=== PATIENT | female | born 1950 | race Caucasian/White ===

== ENCOUNTER → 2018-07-02 | Outpatient (CLI) | payer OTHER ==
[~2018-07-02] MED LIST: ASPI-611 PO; ZOL50T PO
[2018-07-02 08:41] LABS: BASOPHILS # (AUTO) 0.1 X10'3 (0-0.2); BASOPHILS % (AUTO) 1.1 % (0-1); EOSINOPHILS # (AUTO) 0.1 X10'3 (0-0.9); EOSINOPHILS % (AUTO) 1.9 % (0-6); HEMATOCRIT 47.2 % (35.0-45.0); HEMOGLOBIN 15.3 g/dl (12.0-16.0); LYMPHOCYTES # (AUTO) 1.9 X10'3 (1.1-4.8); LYMPHOCYTES % (AUTO) 37.8 % (21-51); MEAN CORPUSCULAR HEMOGLOBIN 31.1 PG (27.0-31.0); MEAN CORPUSCULAR HGB CONC 32.5 % (33.0-36.5); MEAN CORPUSCULAR VOLUME 95.8 FL (78-98); MEAN PLATELET VOLUME 8.4 FL (7.4-10.4); MONOCYTES # (AUTO) 0.4 X10'3 (0-0.9); MONOCYTES % (AUTO) 7.2 % (2-12); NEUTROPHILS # (AUTO) 2.4 X10'3 (1.8-7.7); PLATELET COUNT 233 X10'3 (140-440); RED BLOOD COUNT 4.92 X10'6 (4.20-5.60); RED CELL DISTRIBUTION WIDTH 12.5 % (11.5-14.5); WHITE BLOOD COUNT 4.9 X10'3 (4.5-11.0)
[2018-07-02 09:03] LABS: ALANINE AMINOTRANSFERASE 49 U/L (12-78); ALBUMIN 4.2 G/DL (3.4-5.0); ALBUMIN/GLOBULIN RATIO 1.3 (1.1-1.5); ALKALINE PHOSPHATASE 94 IU/L (46-116); ANION GAP 10 (8-16); ASPARTATE AMINO TRANSFERASE 42 U/L (10-37); BILIRUBIN,TOTAL 0.4 MG/DL (0.1-1.0); BLOOD UREA NITROGEN 9 MG/DL (7-18); BUN/CREATININE RATIO 9.8 (6.6-38.0); CALCIUM 9.6 MG/DL (8.5-10.1); CHLORIDE 104 MMOL/L (99-107); CHOLESTEROL 256 MG/DL (0-200); CREATININE 0.92 MG/DL (0.40-0.90); GLUCOSE 109 MG/DL (70-104); HDL CHOLESTEROL 32 MG/DL (35-60); LDL CHOLESTEROL 178 MG/DL (50-100); POTASSIUM 4.3 MMOL/L (3.5-5.1); SODIUM 142 MMOL/L (135-145); TOTAL CARBON DIOXIDE 28.1 MMOL/L (24-32); TOTAL PROTEIN 7.4 G/DL (6.4-8.2); TRIGLYCERIDES 232 MG/DL (20-135); eGFR 61 ML/MIN
== END | disposition home or self-care (01) ==
LOC: LAB 06:58
PROVIDERS: ATTEND Physician Assistant
DX: Z00.00 Encounter for general adult medical examination without abnormal findings (principal); E55.9 Vitamin D deficiency, unspecified; Z90.710 Acquired absence of both cervix and uterus; Z79.82 Long term (current) use of aspirin
CPT/HCPCS: 36415; 80053; 80061; 82306; 84443; 85025

== ENCOUNTER 2019-02-13 08:12 | Outpatient (CLI) | payer OTHER, MEDICARE ==
[~2019-02-13 08:12] MED LIST changes: +SERT-153 PO; -ZOL50T PO
[2019-02-13 09:03] LABS: BASOPHILS # (AUTO) 0.1 X10'3 (0-0.2); BASOPHILS % (AUTO) 1.4 % (0-1); EOSINOPHILS # (AUTO) 0.1 X10'3 (0-0.9); EOSINOPHILS % (AUTO) 1.8 % (0-6); HEMATOCRIT 43.6 % (35.0-45.0); HEMOGLOBIN 14.7 g/dl (12.0-16.0); LYMPHOCYTES % (AUTO) 38.7 % (21-51); MEAN CORPUSCULAR HGB CONC 33.7 g/dL (33.0-36.5); MEAN CORPUSCULAR VOLUME 95.1 FL (78-98); MEAN PLATELET VOLUME 8.3 FL (7.4-10.4); MONOCYTES # (AUTO) 0.4 X10'3 (0-0.9); MONOCYTES % (AUTO) 7.7 % (2-12); NEUTROPHILS # (AUTO) 2.6 X10'3 (1.8-7.7); NEUTROPHILS % (AUTO) 50.4 % (42-75); PLATELET COUNT 210 X10'3 (140-440); RED BLOOD COUNT 4.58 X10'6 (4.20-5.60); RED CELL DISTRIBUTION WIDTH 13.2 % (11.5-14.5); WHITE BLOOD COUNT 5.2 X10'3 (4.5-11.0)
[2019-02-13 09:35] LABS: ALANINE AMINOTRANSFERASE 44 U/L (12-78); ALBUMIN/GLOBULIN RATIO 1.4 (1.1-1.5); ALKALINE PHOSPHATASE 76 IU/L (46-116); ANION GAP 9 (8-16); ASPARTATE AMINO TRANSFERASE 29 U/L (10-37); BILIRUBIN,TOTAL 0.4 MG/DL (0.1-1.0); BLOOD UREA NITROGEN 12 MG/DL (7-18); BUN/CREATININE RATIO 14.5 (6.6-38.0); CALCIUM 9.3 MG/DL (8.5-10.1); CHLORIDE 109 MMOL/L (99-107); CHOL/HDL RATIO 6.5 (0.00-4.99); CHOLESTEROL 221 MG/DL (0-200); CREATININE 0.83 MG/DL (0.40-0.90); GLUCOSE 104 MG/DL (70-104); HDL CHOLESTEROL 34 MG/DL (35-60); LDL CHOLESTEROL 161 MG/DL (50-100); POTASSIUM 4.3 MMOL/L (3.5-5.1); SODIUM 143 MMOL/L (135-145); TOTAL CARBON DIOXIDE 25.1 MMOL/L (24-32); TOTAL PROTEIN 6.9 G/DL (6.4-8.2); TRIGLYCERIDES 133 MG/DL (20-135); eGFR 69 ML/MIN
== END 2019-02-13 23:59 | disposition home or self-care (01) ==
LOC: LAB 08:12
PROVIDERS: ATTEND Physician Assistant
DX: G47.00 Insomnia, unspecified (principal); F32.2 Major depressive disorder, single episode, severe without psychotic features; F41.1 Generalized anxiety disorder; R53.83 Other fatigue; Z79.899 Other long term (current) drug therapy
CPT/HCPCS: 36415; 80053; 80061; 84439; 84443; 84481; 85025

== ENCOUNTER 2019-06-01 12:42 | Emergency (ER) | payer OTHER, MEDICARE ==
[~2019-06-01] VITALS: Ht 175.3 cm; Wt 75.5 kg
[2019-06-01 13:06] VITALS: BP 127/72
--- NOTE | 2019-06-01 13:46 | NUR ---
PT STATES SHE CANT URINATE AT THIS TIME
[2019-06-01 14:09] LABS: CLARITY,URINE CLOUDY (Clear); COLOR,URINE YELLOW (Yellow); GLUCOSE, URINE NEGATIVE (Neg); KETONES,URINE NEGATIVE (Neg); LEUKOCYTE ESTERASE ,URINE SMALL (Neg); NITRITES, URINE NEGATIVE (Neg); OCCULT BLOOD,URINE LARGE (Neg); PROTEIN,URINE 30 mg/dl (Neg); UA COLLECTION TYPE CLN CATCH MIDSTREAM; UROBILINOGEN,URINE 0.2 E.U/dL (0.2-1.0)
[2019-06-01 14:21] LABS: BACTERIA,URINE 1+ /HPF (Neg); MUCUS STRANDS NONE SEEN /LPF (Neg); RBC,URINE TNTC /HPF (0-2); RENAL CELLS, URINE FEW /HPF; SQUAMOUS EPITHELIAL CELL,UR FEW /LPF (FEW); WBC CLUMPS,URINE FEW /HPF (NEGATIVE); WBC,URINE 30-50 /HPF (0-4)
[2019-06-01] MEDS ORDERED: cephalexin 250mg capsule PO ONE (14:55)
[2019-06-01] MEDS ORDERED: CEPH250T PO (14:57)
== END 2019-06-01 15:18 | disposition home or self-care (01) ==
LOC: ER 12:42
DX: N39.0 Urinary tract infection, site not specified (principal); E78.00 Pure hypercholesterolemia, unspecified; M19.90 Unspecified osteoarthritis, unspecified site; R31.9 Hematuria, unspecified; Z90.49 Acquired absence of other specified parts of digestive tract; Z90.710 Acquired absence of both cervix and uterus; Z86.718 Personal history of other venous thrombosis and embolism; Z88.0 Allergy status to penicillin; Z79.82 Long term (current) use of aspirin; Z79.2 Long term (current) use of antibiotics
CPT/HCPCS: 81001; 87088; 99283

== ENCOUNTER 2019-06-06 07:41 | Emergency (ER) | payer OTHER, MEDICARE ==
[~2019-06-06] VITALS: Ht 175.3 cm; Wt 82.5 kg
[~2019-06-06 07:41] MED LIST changes: +CEPH250T PO
[2019-06-06 08:36] LABS: BASOPHILS # (AUTO) 0.1 X10'3 (0-0.2); BASOPHILS % (AUTO) 1.1 % (0-1); EOSINOPHILS # (AUTO) 0.1 X10'3 (0-0.9); EOSINOPHILS % (AUTO) 1.6 % (0-6); HEMATOCRIT 43.6 % (35.0-45.0); HEMOGLOBIN 14.7 g/dl (12.0-16.0); LYMPHOCYTES # (AUTO) 1.3 X10'3 (1.1-4.8); LYMPHOCYTES % (AUTO) 25.7 % (21-51); MEAN CORPUSCULAR HEMOGLOBIN 33.1 PG (27.0-31.0); MEAN CORPUSCULAR HGB CONC 33.7 g/dL (33.0-36.5); MEAN CORPUSCULAR VOLUME 98.1 FL (78-98); MEAN PLATELET VOLUME 9.2 FL (7.4-10.4); MONOCYTES # (AUTO) 0.5 X10'3 (0-0.9); MONOCYTES % (AUTO) 10.4 % (2-12); NEUTROPHILS # (AUTO) 3.2 X10'3 (1.8-7.7); NEUTROPHILS % (AUTO) 61.2 % (42-75); PLATELET COUNT 175 X10'3 (140-440); RED BLOOD COUNT 4.44 X10'6 (4.20-5.60); RED CELL DISTRIBUTION WIDTH 13.6 % (11.5-14.5); WHITE BLOOD COUNT 5.2 X10'3 (4.5-11.0)
[2019-06-06] MEDS ORDERED: normal saline 1000ML IV soln IVB ONE (08:45)
[2019-06-06 08:54] LABS: ALANINE AMINOTRANSFERASE 28 U/L (12-78); ALBUMIN 3.8 G/DL (3.4-5.0); ALBUMIN/GLOBULIN RATIO 1.4 (1.1-1.5); ALKALINE PHOSPHATASE 77 IU/L (46-116); ANION GAP 6 (8-16); ASPARTATE AMINO TRANSFERASE 29 U/L (10-37); BILIRUBIN,TOTAL 0.4 MG/DL (0.1-1.0); BLOOD UREA NITROGEN 11 MG/DL (7-18); BUN/CREATININE RATIO 13.6 (6.6-38.0); CALCIUM 9.1 MG/DL (8.5-10.1); CHLORIDE 108 MMOL/L (99-107); CREATININE 0.81 MG/DL (0.40-0.90); GLUCOSE 118 MG/DL (70-104); SODIUM 143 MMOL/L (135-145); TOTAL CARBON DIOXIDE 29.4 MMOL/L (24-32); TOTAL PROTEIN 6.6 G/DL (6.4-8.2); eGFR 71 ML/MIN
[2019-06-06 09:00] LABS: POTASSIUM 4.2 MMOL/L (3.5-5.1)
--- NOTE | 2019-06-06 09:30 | NUR ---
PT TO CT VIA WHEELCHAIR WITH MANAGER SPORTS PER ORDERS NOW
[2019-06-06 10:47] LABS: CLARITY,URINE SLIGHTLY CLOUDY (Clear); COLOR,URINE YELLOW (Yellow); GLUCOSE, URINE NEGATIVE (Neg); KETONES,URINE NEGATIVE (Neg); LEUKOCYTE ESTERASE ,URINE SMALL (Neg); NITRITES, URINE NEGATIVE (Neg); OCCULT BLOOD,URINE NEGATIVE (Neg); PH,URINE 6.5 (4.8-8.0); PROTEIN,URINE NEGATIVE (Neg); UA COLLECTION TYPE CLN CATCH MIDSTREAM
[2019-06-06] MEDS ORDERED: PHEN-824 PO (11:03)
--- NOTE | 2019-06-06 11:09 | NUR ---
in to assist PA Crum with vag exam.
[2019-06-06 11:12] LABS: SQUAMOUS EPITHELIAL CELL,UR MODERATE /LPF (FEW)
[2019-06-06 11:14] LABS: BACTERIA,URINE FEW /HPF (Neg)
[2019-06-06 11:15] LABS: TRANSITIONAL EPI CELLS,URINE FEW /HPF
[2019-06-06] MEDS ORDERED: azithromycin 250mg tablet PO ONE (11:15)
[2019-06-06] MEDS ORDERED: CefTRIAXone 250MG IM Kit w/LIDOcaine IM ONE (11:15)
[2019-06-06 11:19] LABS: MUCUS STRANDS MODERATE /LPF (Neg)
[2019-06-06] MEDS ORDERED: ACYC5CRE2 TOP (11:19)
[2019-06-06 11:51] VITALS: BP 150/80
== END 2019-06-06 11:57 | disposition home or self-care (01) ==
LOC: ER 07:41
DX: R31.9 Hematuria, unspecified (principal); N76.0 Acute vaginitis; E78.00 Pure hypercholesterolemia, unspecified; M19.90 Unspecified osteoarthritis, unspecified site; Z90.49 Acquired absence of other specified parts of digestive tract; Z90.710 Acquired absence of both cervix and uterus; Z86.718 Personal history of other venous thrombosis and embolism; Z98.890 Other specified postprocedural states; Z88.0 Allergy status to penicillin; Z79.82 Long term (current) use of aspirin; Z79.899 Other long term (current) drug therapy
CPT/HCPCS: 36415; 74176; 80053; 81001; 85025; 87088; 87491; 87591; 96372; 99284; J0696; J7030

== ENCOUNTER 2019-06-13 09:17 | Outpatient (CLI) | payer OTHER, MEDICARE ==
[~2019-06-13 09:17] MED LIST changes: +ACYC5CRE2 TOP; -CEPH250T PO; +PHEN-824 PO
[2019-06-16 19:07] LABS: HSV 1 PCR Negative (Negative); HSV 2 PCR Negative (Negative)
== END 2019-06-13 23:59 | disposition home or self-care (01) ==
LOC: LAB 09:17
PROVIDERS: ATTEND Family Medicine
DX: R31.0 Gross hematuria (principal); R30.0 Dysuria; Z88.0 Allergy status to penicillin
CPT/HCPCS: 36415; 87529

== ENCOUNTER 2019-11-27 06:31 | Outpatient (CLI) | payer OTHER ==
[2019-11-27 08:41] LABS: CLARITY,URINE CLEAR (Clear); COLOR,URINE YELLOW (Yellow); GLUCOSE, URINE NEGATIVE (Neg); KETONES,URINE NEGATIVE (Neg); LEUKOCYTE ESTERASE ,URINE TRACE (Neg); NITRITES, URINE NEGATIVE (Neg); OCCULT BLOOD,URINE NEGATIVE (Neg); PH,URINE 5.5 (4.8-8.0); PROTEIN,URINE NEGATIVE (Neg); UROBILINOGEN,URINE 0.2 E.U/dL (0.2-1.0)
[2019-11-27 08:42] LABS: BASOPHILS # (AUTO) 0.1 X10'3 (0-0.2); BASOPHILS % (AUTO) 1.4 % (0-1); EOSINOPHILS # (AUTO) 0.1 X10'3 (0-0.9); EOSINOPHILS % (AUTO) 1.7 % (0-6); HEMATOCRIT 45.4 % (35.0-45.0); HEMOGLOBIN 15.3 g/dl (12.0-16.0); LYMPHOCYTES # (AUTO) 2.3 X10'3 (1.1-4.8); LYMPHOCYTES % (AUTO) 39.7 % (21-51); MEAN CORPUSCULAR HEMOGLOBIN 32.4 PG (27.0-31.0); MEAN CORPUSCULAR HGB CONC 33.8 g/dL (33.0-36.5); MEAN PLATELET VOLUME 8.3 FL (7.4-10.4); MONOCYTES # (AUTO) 0.6 X10'3 (0-0.9); NEUTROPHILS # (AUTO) 2.7 X10'3 (1.8-7.7); NEUTROPHILS % (AUTO) 47.2 % (42-75); PLATELET COUNT 211 X10'3 (140-440); RED BLOOD COUNT 4.73 X10'6 (4.20-5.60); RED CELL DISTRIBUTION WIDTH 13.1 % (11.5-14.5); WHITE BLOOD COUNT 5.7 X10'3 (4.5-11.0)
[2019-11-27 08:43] LABS: UA COLLECTION TYPE CLN CATCH MIDSTREAM
[2019-11-27 08:48] LABS: BACTERIA,URINE FEW /HPF (Neg); MUCUS STRANDS NONE SEEN /LPF (Neg); RBC,URINE NONE SEEN /HPF (0-2); SQUAMOUS EPITHELIAL CELL,UR FEW /LPF (FEW); WBC,URINE 0-4 /HPF (0-4)
[2019-11-27 09:11] LABS: ALANINE AMINOTRANSFERASE 26 U/L (12-78); ALBUMIN 4.1 G/DL (3.4-5.0); ALBUMIN/GLOBULIN RATIO 1.6 (1.1-1.5); ALKALINE PHOSPHATASE 73 IU/L (46-116); ANION GAP 8 (8-16); ASPARTATE AMINO TRANSFERASE 26 U/L (10-37); BILIRUBIN,TOTAL 0.5 MG/DL (0.1-1.0); BLOOD UREA NITROGEN 14 MG/DL (7-18); BUN/CREATININE RATIO 15.7 (6.6-38.0); CALCIUM 9.1 MG/DL (8.5-10.1); CHLORIDE 109 MMOL/L (99-107); CHOL/HDL RATIO 6.1 (0.00-4.99); CHOLESTEROL 227 MG/DL (0-200); CREATININE 0.89 MG/DL (0.40-0.90); GLUCOSE 107 MG/DL (70-104); HDL CHOLESTEROL 37 MG/DL (35-60); LDL CHOLESTEROL 160 MG/DL (50-100); SODIUM 144 MMOL/L (135-145); TOTAL CARBON DIOXIDE 27.1 MMOL/L (24-32); TOTAL PROTEIN 6.7 G/DL (6.4-8.2); TRIGLYCERIDES 148 MG/DL (20-135); eGFR 63 ML/MIN
== END 2019-11-27 23:59 | disposition home or self-care (01) ==
LOC: LAB 06:31
PROVIDERS: ATTEND Family Medicine
DX: E78.5 Hyperlipidemia, unspecified (principal); R10.2 Pelvic and perineal pain; G45.8 Other transient cerebral ischemic attacks and related syndromes
CPT/HCPCS: 36415; 80053; 80061; 81001; 84439; 84443; 85025; 87088

== ENCOUNTER 2019-12-09 07:13 | Outpatient (CLI) | payer OTHER ==
[2019-12-09 11:15] LABS: MAGNESIUM 2.1 MG/DL (1.5-2.4)
[2019-12-10 13:15] LABS: ESTRADIOL <5.0 pg/mL (.)
[2019-12-11 13:29] LABS: VITAMIN D, 1,25 DIHYDROXY 42.4 pg/mL (19.9-79.3)
[2019-12-12 13:12] LABS: ESTRONE, SERUM 55 pg/mL (.)
== END 2019-12-09 23:59 | disposition home or self-care (01) ==
LOC: LAB 07:13
PROVIDERS: ATTEND Family Medicine
DX: F32.9 Major depressive disorder, single episode, unspecified (principal); R53.83 Other fatigue; Z86.39 Personal history of other endocrine, nutritional and metabolic disease
CPT/HCPCS: 36415; 82652; 82670; 82679; 83540; 83550; 83735; 84630

== ENCOUNTER → 2020-04-03 | Outpatient (CLI) | payer BC ==
[2020-04-03 09:17] LABS: CLARITY,URINE CLEAR (Clear); COLOR,URINE YELLOW (Yellow); GLUCOSE, URINE NEGATIVE (Neg); KETONES,URINE NEGATIVE (Neg); LEUKOCYTE ESTERASE ,URINE NEGATIVE (Neg); NITRITES, URINE NEGATIVE (Neg); OCCULT BLOOD,URINE NEGATIVE (Neg); PH,URINE 5.5 (4.8-8.0); PROTEIN,URINE NEGATIVE (Neg); UROBILINOGEN,URINE 0.2 E.U/dL (0.2-1.0)
[2020-04-03 09:18] LABS: UA COLLECTION TYPE NON-SPECIFIED
[2020-04-03 09:18] LABS: HEMOGLOBIN A1C 6.1 % (4.5-6.2)
[2020-04-03 09:22] LABS: CHOL/HDL RATIO 7.8 (0.00-4.99); CHOLESTEROL 272 MG/DL (0-200); HDL CHOLESTEROL 35 MG/DL (35-60); LDL CHOLESTEROL 190 MG/DL (50-100); TRIGLYCERIDES 217 MG/DL (20-135)
== END | disposition home or self-care (01) ==
LOC: LAB 06:35
PROVIDERS: ATTEND Family Medicine
DX: E78.5 Hyperlipidemia, unspecified (principal); R73.03 Prediabetes; R53.83 Other fatigue
CPT/HCPCS: 36415; 80061; 81003; 83036

== ENCOUNTER 2020-04-30 13:01 | Outpatient (CLI) | payer BC ==
[2020-04-30 15:22] LABS: HEMOGLOBIN A1C 6.6 % (4.5-6.2)
[2020-04-30 15:27] LABS: CHOLESTEROL 244 MG/DL (0-200); HDL CHOLESTEROL 27 MG/DL (35-60); LDL CHOLESTEROL 160 MG/DL (50-100); TRIGLYCERIDES 430 MG/DL (20-135)
== END 2020-04-30 23:59 | disposition home or self-care (01) ==
LOC: LAB 13:01
PROVIDERS: ATTEND Family Medicine
DX: E78.5 Hyperlipidemia, unspecified (principal); R73.03 Prediabetes; R53.83 Other fatigue
CPT/HCPCS: 36415; 80061; 83036

== ENCOUNTER 2020-08-14 14:34 | Outpatient (CLI) | payer BC | END 2020-08-14 23:59 | disposition home or self-care (01) | LOC: RAD 14:34 | PROVIDERS: ATTEND Physician Assistant | DX: M17.0 Bilateral primary osteoarthritis of knee (principal) | CPT/HCPCS: 73564 ==

== ENCOUNTER 2020-12-16 05:53 | Outpatient (CLI) | payer BC ==
[2020-12-17] MEDS ORDERED: METO-395 PO (09:32)
[2020-12-17] MEDS ORDERED: APIX5TAB3 PO (09:32)
[2020-12-17] MEDS ORDERED: ATOR40TA PO (12:39)
[2020-12-17] MEDS ORDERED: FLEC50TA28 PO (12:39)
== END 2020-12-16 23:59 | disposition home or self-care (01) ==
LOC: VAS 05:53
PROVIDERS: ATTEND Internal Medicine Cardiovascular Disease
DX: I65.22 Occlusion and stenosis of left carotid artery (principal); R94.30 Abnormal result of cardiovascular function study, unspecified; I73.9 Peripheral vascular disease, unspecified
CPT/HCPCS: 93306; 93880; 93930

== ENCOUNTER 2020-12-16 17:21 | Inpatient (IN) | payer BC, MEDICARE ==
[~2020-12-16] VITALS: Ht 175.3 cm; Wt 86.4 kg
[2020-12-16] MEDS ORDERED: enoxaparin 100mg/ml syringe SUBCUT ONE (17:40)
[2020-12-16] MEDS ORDERED: diltiazem 5mg/ml 5ml inj. IV ONE (17:40)
[2020-12-16] MEDS ORDERED: enoxaparin 80mg/0.8ml syringe SUBCUT ONE (17:45)
[2020-12-16 18:08] LABS: BASOPHILS # (AUTO) 0.1 X10'3 (0-0.2); BASOPHILS % (AUTO) 1.2 % (0-1); EOSINOPHILS # (AUTO) 0.1 X10'3 (0-0.9); EOSINOPHILS % (AUTO) 1.6 % (0-6); HEMATOCRIT 49.2 % (35.0-45.0); HEMOGLOBIN 16.5 g/dl (12.0-16.0); LYMPHOCYTES # (AUTO) 3.1 X10'3 (1.1-4.8); LYMPHOCYTES % (AUTO) 42.4 % (21-51); MEAN CORPUSCULAR HEMOGLOBIN 31.7 PG (27.0-31.0); MEAN CORPUSCULAR HGB CONC 33.6 g/dL (33.0-36.5); MEAN CORPUSCULAR VOLUME 94.1 FL (78-98); MEAN PLATELET VOLUME 8.3 FL (7.4-10.4); MONOCYTES # (AUTO) 0.6 X10'3 (0-0.9); MONOCYTES % (AUTO) 7.7 % (2-12); NEUTROPHILS # (AUTO) 3.5 X10'3 (1.8-7.7); NEUTROPHILS % (AUTO) 47.1 % (42-75); PLATELET COUNT 237 X10'3 (140-440); RED BLOOD COUNT 5.22 X10'6 (4.20-5.60); RED CELL DISTRIBUTION WIDTH 13.5 % (11.5-14.5); WHITE BLOOD COUNT 7.4 X10'3 (4.5-11.0)
[2020-12-16 18:30] LABS: ALANINE AMINOTRANSFERASE 39 U/L (12-78); ALBUMIN 4.5 G/DL (3.4-5.0); ALBUMIN/GLOBULIN RATIO 1.5 (1.1-1.5); ALKALINE PHOSPHATASE 78 IU/L (46-116); ANION GAP 10 (8-16); ASPARTATE AMINO TRANSFERASE 34 U/L (10-37); BILIRUBIN,TOTAL 0.4 MG/DL (0.1-1.0); BLOOD UREA NITROGEN 15 MG/DL (7-18); BUN/CREATININE RATIO 15.6 (6.6-38.0); CALCIUM 9.9 MG/DL (8.5-10.1); CHLORIDE 105 MMOL/L (99-107); CREATININE 0.96 MG/DL (0.40-0.90); GLUCOSE 106 MG/DL (70-104); POTASSIUM 4.4 MMOL/L (3.5-5.1); SODIUM 142 MMOL/L (135-145); TOTAL CARBON DIOXIDE 27.5 MMOL/L (24-32); TOTAL PROTEIN 7.6 G/DL (6.4-8.2); eGFR 58 ML/MIN
[2020-12-16 18:37] LABS: MAGNESIUM 2.1 MG/DL (1.5-2.4)
--- NOTE | 2020-12-16 18:43 | NUR ---
Dr Peguero at bedside, aware pt in sinus rhythm HR 88 to 90, cardizem not given
--- NOTE | 2020-12-16 20:50 | NUR ---
pt amb with steady gait to restroom, waiting for bed assignment
[2020-12-16] MEDS ORDERED: bisacodyl 10mg suppository rectal RC PRN (20:55)
[2020-12-16] MEDS ORDERED: HYDROcodone/acetaminophen 5mg/325mg tablet PO PRN (20:55)
[2020-12-16] MEDS ORDERED: diphenhydrAMINE 25mg capsule PO PRN (20:55)
[2020-12-16] MEDS ORDERED: diphenhydrAMINE 50 mg/ml inj IV PRN (20:55)
[2020-12-16] MEDS ORDERED: mag hydrox/Alum hydrox/simeth 30ml oral suspension PO PRN (20:55)
[2020-12-16] MEDS ORDERED: morphine 2 MG/ML inj. syringe IV PRN ×2 (20:55)
[2020-12-16] MEDS ORDERED: ondansetron/PF 4mg/2ml inj IV PRN (20:55)
[2020-12-16] MEDS ORDERED: acetaminophen 325mg tablet PO PRN ×2 (20:55)
[2020-12-16] MEDS ORDERED: ondansetron 4mg rapidly disintigrating tab PO PRN (20:55)
[2020-12-16] MEDS ORDERED: magnesium hydroxide 30ml (MOM) UD suspension PO PRN (20:55)
[2020-12-16] MEDS ORDERED: acetaminophen 650mg rectal suppository RC PRN (20:55)
[2020-12-16] MEDS ORDERED: normal saline 1000ml 1,000 ML IV SCH (20:55)
[2020-12-16] MEDS ORDERED: temazepam 15mg capsule PO PRN (21:00)
[2020-12-16 21:13] LABS: HEMOGLOBIN A1C 6.5 % (4.5-6.2)
[2020-12-16 21:16] LABS: PHOSPHORUS 3.1 MG/DL (2.3-4.5)
[2020-12-16 21:43] LABS: CREATINE KINASE 215 U/L (26-192)
[2020-12-16 23:56] LABS: PARTIAL THROMBOPLASTIN TIME 28 SECONDS (22-32)
[2020-12-17 06:15] LABS: BASOPHILS # (AUTO) 0.1 X10'3 (0-0.2); BASOPHILS % (AUTO) 1.4 % (0-1); EOSINOPHILS # (AUTO) 0.1 X10'3 (0-0.9); EOSINOPHILS % (AUTO) 2.1 % (0-6); HEMATOCRIT 42.7 % (35.0-45.0); HEMOGLOBIN 14.7 g/dl (12.0-16.0); LYMPHOCYTES % (AUTO) 43.9 % (21-51); MEAN CORPUSCULAR HEMOGLOBIN 32.4 PG (27.0-31.0); MEAN CORPUSCULAR HGB CONC 34.4 g/dL (33.0-36.5); MEAN CORPUSCULAR VOLUME 94.3 FL (78-98); MEAN PLATELET VOLUME 8.4 FL (7.4-10.4); MONOCYTES # (AUTO) 0.4 X10'3 (0-0.9); MONOCYTES % (AUTO) 8.8 % (2-12); NEUTROPHILS % (AUTO) 43.8 % (42-75); PLATELET COUNT 189 X10'3 (140-440); RED BLOOD COUNT 4.53 X10'6 (4.20-5.60); RED CELL DISTRIBUTION WIDTH 13.2 % (11.5-14.5); WHITE BLOOD COUNT 4.6 X10'3 (4.5-11.0)
[2020-12-17 06:30] LABS: ALANINE AMINOTRANSFERASE 37 U/L (12-78); ALBUMIN 3.6 G/DL (3.4-5.0); ALBUMIN/GLOBULIN RATIO 1.4 (1.1-1.5); ALKALINE PHOSPHATASE 64 IU/L (46-116); ANION GAP 10 (8-16); ASPARTATE AMINO TRANSFERASE 34 U/L (10-37); BILIRUBIN,TOTAL 0.5 MG/DL (0.1-1.0); BLOOD UREA NITROGEN 14 MG/DL (7-18); BUN/CREATININE RATIO 16.1 (6.6-38.0); CALCIUM 8.9 MG/DL (8.5-10.1); CHLORIDE 108 MMOL/L (99-107); CREATININE 0.87 MG/DL (0.40-0.90); GLUCOSE 113 MG/DL (70-104); POTASSIUM 4.2 MMOL/L (3.5-5.1); SODIUM 143 MMOL/L (135-145); TOTAL CARBON DIOXIDE 24.8 MMOL/L (24-32); TOTAL PROTEIN 6.2 G/DL (6.4-8.2); eGFR 65 ML/MIN
[2020-12-17 06:34] LABS: CHOL/HDL RATIO 8.5 (0.00-4.99); CHOLESTEROL 222 MG/DL (0-200); HDL CHOLESTEROL 26 MG/DL (35-60); LDL CHOLESTEROL 141 MG/DL (50-100); TRIGLYCERIDES 288 MG/DL (20-135)
[2020-12-17] MEDS ORDERED: pantoprazole 40mg Tablet.DR PO SCH (07:30)
--- NOTE | 2020-12-17 07:41 | NUR ---
Patient in room ED 14. I have received report from ALBA Vines and had the opportunity to ask questions and assume patient care when patient arrives to room 4007.
[2020-12-17] MEDS ORDERED: lisinopril 20mg tablet PO SCH (08:00)
[2020-12-17] MEDS ORDERED: sertraline 50mg tablet PO SCH (08:00)
[2020-12-17] MEDS ORDERED: enoxaparin 80mg/0.8ml syringe SUBCUT SCH (08:00)
[2020-12-17] MEDS ORDERED: docusate sod 100mg capsule PO SCH (08:00)
[2020-12-17] MEDS ORDERED: atorvastatin 20mg tablet PO SCH (08:00)
[2020-12-17] MEDS ORDERED: metoprolol tartrate 25mg tablet PO SCH (08:00)
[2020-12-17 08:15] VITALS: BP 151/83
--- NOTE | 2020-12-17 08:15 | NUR ---
Patient arrived to room 4007 via bed accompanied by ALBA Vines. Patient is alert and oriented with no complaints. She is requesting a shower. Shower set up and ready for patient. Patient oriented to room and call light. Call light placed within reach.
[2020-12-17] MEDS ORDERED: APIX5TAB3 PO (09:32)
[2020-12-17] MEDS ORDERED: METO-395 PO (09:32)
[2020-12-17 10:34] VITALS: BP 152/65
--- NOTE | 2020-12-17 10:58 | NUR ---
[employer] coupon packet given to patient.
--- NOTE | 2020-12-17 11:33 | NUR ---
Discussed with patient discharge information and new prescription. Patient verbalizes understanding and does not have questions. Patient ready for dc waiting for transport home.
--- NOTE | 2020-12-17 12:31 | NUR ---
Patient waiting to see cardiac PA JACK Kwon.
[2020-12-17] MEDS ORDERED: FLEC50TA28 PO (12:39)
[2020-12-17] MEDS ORDERED: ATOR40TA PO (12:39)
--- NOTE | 2020-12-17 13:17 | NUR ---
Patient dc'd via wheelchair accompanied by x1 staff and spouse. IV dc'd cannula intact.
== END 2020-12-17 13:15 | disposition home or self-care (01) | DRG 309 ==
LOC: ER 17:22 → ED HOLD 20:52 → ORTHO 4S 12-17 08:00
PROVIDERS: ADMIT Family Medicine; ATTEND Internal Medicine
DX: I48.91 Unspecified atrial fibrillation (principal); I50.30 Unspecified diastolic (congestive) heart failure; N17.9 Acute kidney failure, unspecified; E78.00 Pure hypercholesterolemia, unspecified; E78.5 Hyperlipidemia, unspecified; E86.0 Dehydration; I11.0 Hypertensive heart disease with heart failure; I27.20 Pulmonary hypertension, unspecified; I49.3 Ventricular premature depolarization; M19.90 Unspecified osteoarthritis, unspecified site; Z96.659 Presence of unspecified artificial knee joint; M17.12 Unilateral primary osteoarthritis, left knee; Z79.01 Long term (current) use of anticoagulants; Z79.899 Other long term (current) drug therapy; Z86.718 Personal history of other venous thrombosis and embolism; Z90.49 Acquired absence of other specified parts of digestive tract; Z90.710 Acquired absence of both cervix and uterus
CPT/HCPCS: 36415; 71045; 80053; 80061; 82550; 83036; 83735; 83880; 84100; 84443; 84484; 85025; 85610; 85730; 87081; 93005; 96372; 99285; G0378; J1650; J7030